=== PATIENT | male | born 1955 | race Caucasian/White ===

== ENCOUNTER → 2023-08-31 | Outpatient (CLI) | payer MEDICARE, BC, SELFPAY ==
[2023-08-31 14:28] LABS: Absolute Lymphocyte Count 0.58 X10^3/uL (0.83-4.51); Absolute Neutrophil Count 2.5 X10^3/uL (2.0-7.7); Basophil# 0.03 X10^3/uL; Basophil% 0.8 % (0-1); Hematocrit 29.5 % (40-54); Hemoglobin 8.8 g/dL (13.0-16.5); Lymphocyte # 0.58 X10^3/ul (0.83-4.51); Lymphocyte % 14.5 % (19-41); Mean Corp Hgb Conc 29.8 g/dL (32-36); Mean Corpuscular Hgb 24.9 pg (27.0-32.0); Mean Corpuscular Volume 83.3 fL (80-94); Mean Platelet Vol. 10.2 fl (6.2-12.0); Monocyte# 0.66 X10^3/uL; Monocyte% 16.5 % (0-10); NRBC Flagged by Analyzer 0 % (0-5); Neutrophil % 62.7 % (47-70); POSITIVE DIFFERENTIAL YES; Platelet Count 148 K/mm3 (150-450); RBC Distribution Width CV 19.8 % (11.6-14.6); RBC Distribution Width SD 59.7 fl (35.1-43.9); Red Blood Count 3.54 M/mm3 (4.6-6.2)
[2023-08-31 15:02] LABS: Vancomycin, Trough Level 17.6 ug/mL (5.0-15.0)
[2023-08-31 15:03] LABS: Alanine Aminotransfer ALT/SGPT 26 U/L (16-61); EST Glomerular Filtration Rate 89 mL/min (>60); Est Glom Filt Rate - Afr Amer 108 mL/min (>60)
== END | disposition home or self-care (01) ==
LOC: LABSPEC 13:46
PROVIDERS: PCP Family Medicine; Referring Provider Internal Medicine; Visit Provider Internal Medicine
DX: T84.53XA Infection and inflammatory reaction due to internal right knee prosthesis, initial encounter (principal)
CPT/HCPCS: 80202; 82565; 84460; 85025

== ENCOUNTER → 2023-09-22 | Outpatient (CLI) | payer MEDICARE, BC, SELFPAY ==
[2023-09-22 09:51] LABS: Absolute Lymphocyte Count 0.79 X10^3/uL (0.83-4.51); Absolute Neutrophil Count 3.3 X10^3/uL (2.0-7.7); Basophil# 0.03 X10^3/uL; Basophil% 0.6 % (0-1); Eosinophil# 0.24 X10^3/uL; Eosinophils% 4.8 % (0-5); Hematocrit 30.1 % (40-54); Hemoglobin 9.2 g/dL (13.0-16.5); Lymphocyte # 0.79 X10^3/ul (0.83-4.51); Lymphocyte % 15.9 % (19-41); Mean Corp Hgb Conc 30.6 g/dL (32-36); Mean Corpuscular Hgb 25.7 pg (27.0-32.0); Mean Corpuscular Volume 84.1 fL (80-94); Mean Platelet Vol. 10.7 fl (6.2-12.0); Monocyte# 0.55 X10^3/uL; Monocyte% 11.1 % (0-10); NRBC Flagged by Analyzer 0 % (0-5); Neutrophil # 3.32 X10^3/uL (2.7-7.7); Platelet Count 131 K/mm3 (150-450); RBC Distribution Width SD 60.7 fl (35.1-43.9); Red Blood Count 3.58 M/mm3 (4.6-6.2)
[2023-09-22 10:28] LABS: Alanine Aminotransfer ALT/SGPT 20 U/L (16-61); Creatinine, Serum 0.94 mg/dL (0.70-1.30); EST Glomerular Filtration Rate 85 mL/min (>60); Est Glom Filt Rate - Afr Amer 103 mL/min (>60)
[2023-09-22 10:29] LABS: Vancomycin, Trough Level 18.6 ug/mL (5.0-15.0)
== END | disposition home or self-care (01) ==
LOC: LABSPEC 09:30
PROVIDERS: PCP Family Medicine; Referring Provider Internal Medicine; Visit Provider Internal Medicine
DX: T84.53XA Infection and inflammatory reaction due to internal right knee prosthesis, initial encounter (principal)
CPT/HCPCS: 80202; 82565; 84460; 85025